=== PATIENT | female | born 1940 | race Caucasian/White ===

== ENCOUNTER 2022-12-02 16:45 | Observation (INO) | payer MEDICARE, SELFPAY ==
[2022-12-02] VITALS (22 sets, daily range): BP systolic 102–136; BP diastolic 34–66; PULSE 68–124; RESP 12–23; TEMP 36.6; O2SAT 83–98; BMI 39.5; BMI 36.3
--- NOTE | 2022-12-02 17:16 | ECG_ITS ---
[facility] Test Date: 2022-12-02 Pat Name: PILI ALVAREZ Department: Room: - Gender: Female Digital Experience Manager: : 1940 Requested By: Order Number: [id number] Reading MD: ALEXUS DAHL Measurements Intervals Reva Rate: 72 P: 30 TN: 270 QRS: 10 QRSD: 84 T: 67 QT: 384 QTc: 408 Interpretive Statements 1100 Sinus rhythm 2231 First degree AV block 2420 RSR (QR) in lead V1/V2, consistent with right ventricular conduction delay 4068 Nonspecific Twave abnormality Baseline artifact 9150 abnormal ECG No previous ECG available for comparison Electronically Signed On 12-04-2022 18:21:00 EDT by ALEXUS DAHL
--- NOTE | 2022-12-02 17:19 | ED_ITS ---
HPI - Fall General Chief Complaint: Fall Stated Complaint: FALL Time Seen by Provider: 12/02/22 17:00 History of Present Illness HPI Narrative: Patient was walking in her bathroom 2 days ago and using her walker device for support when she lost her footing and slid down, falling back and striking the floor kind of like I slid down flat . No injury to the head, neck or back. She had some bilateral hip pain and left knee pain initially but was able to ambulate after someone helped her up. Over the last 2 days she had been ambulating at home with her walker/assistance device. However this afternoon she sat on the cough and then was unable to get up and stand due to pain behind the left knee and in both hips. She had prior bilateral knee replacement surgery at an outside hospital closer to where she used to live. She relocated to [facility] to live with family member after her significant other 2 months ago. Related Data Allergies Allergy/AdvReac Type Severity Reaction Status Date / Time No Known Drug Allergies Allergy Verified 12/02/22 16:53 PFSH PFS Social History Smoking status: Former smoker Exam Narrative Exam Narrative: Nurses note and vital signs reviewed and patient is not hypoxic. afebrile General: The patient appears well and in no apparent distress. Patient is resting comfortably on cart. GCS = 15. Skin: Warm, dry, no pallor noted. Head: Normocephalic, atraumatic Neck: Supple, trachea mid-line. Full ROM and no cervical spinal tenderness. Eyes: PERRLA, EOMI ENT: no oral or intraoral injury Cardiovascular: Regular Rate and Rhythm Respiratory: Patient is in no distress, no accessory muscle use, lungs are clear to auscultation, no wheezing, rales or rhonchi Chest Wall: no tenderness, no flail chest, contusion, abrasion, or signs of trauma. Back: No thoracic or lumbar tenderness to palpation. Musculoskeletal: Pain in both hips with any attempt at hip movement. Tenderness on palpation of both greater trochanters. No right or left thigh tenderness. No LE deformity. Left popliteal tenderness, no left knee swelling and no left patellar pain with palpation. Pulses at femoral, DP, PT, and popliteal were 2+ bilaterally. Moves remaining extremities in all modalities with 5/5 strength. GI: Normal bowel sounds, no tenderness to palpation, no masses appreciated. No rebound, guarding, or rigidity noted. Neurological: A&O x4, normal equal able bodied watchman strength, normal finger to nose, normal speech, normal coordination, normal motor, normal sensory. Psychiatric: Cooperative Constitutional Vital Signs, click to edit/add: Last Vital Signs Temp 97.8 F 12/02/22 16:48 Pulse 124 H 12/02/22 16:48 Resp 22 12/02/22 16:48 BP 102/66 12/02/22 16:48 Pulse Ox 98 12/02/22 16:48 O2 Del Method Room Air 12/02/22 16:48 Course Vital Signs Vital signs: Vital Signs Temperature 97.8 F 12/02/22 16:48 Pulse Rate 124 H 12/02/22 16:48 Respiratory Rate 22 12/02/22 16:48 Blood Pressure 102/66 12/02/22 16:48 Pulse Oximetry 98 12/02/22 16:48 Oxygen Delivery Method Room Air 12/02/22 16:48 Temperature 97.8 F 12/02/22 16:48 Pulse Rate 124 H 12/02/22 16:48 Respiratory Rate 22 12/02/22 16:48 Blood Pressure 102/66 12/02/22 16:48 Pulse Oximetry 98 12/02/22 16:48 Oxygen Delivery Method Room Air 12/02/22 16:48 MDM - Fall MDM Narrative Medical decision making narrative: patient was given IV Solu-Medrol and IV Toradol and received x-rays of the left knee and both hips as well as bony pelvis. No acute fracture, dislocation or other focal acute abnormality was identified. her bilateral hip arthroplasty and bilateral knee arthroplasty hardware is intact. Despite treatment the patient is still in too much pain to properly move the left leg at the hip and knee, much less attempt to sit up, stand or walk. WBC 12k with left shift but no sign of infection noted on physical exam. BMP with normal electrolytes. Slightly elevated BUN and Cr at 22, 1.11. Nothing found to account for the patient's symptoms but since she cannot stand or ambulate she will be admitted to [facility] for PT, pain control, additional evaluation. Dr Urban Sister asked that we obtain CT scan of the pelvis/hips but agreed to accept the patient's admission. Case discussed with Dr Centeno at 7pm shift change - he will review the CT results and notify ortho - Dr Galvin - if there is a need for his services. Dr Barahona will be the hospitalist in the morning so we admitted to his service. Lab Data Attestation: I reviewed the patient's lab results. Labs: Lab Results 12/02/22 Range/Units 17:00 WBC 12.3 H (4.0-11.0) 10^3/uL RBC 4.05 L (4.20-5.40) 10^6/uL Hgb 12.0 (12.0-16.0) g/dL Hct 37.1 (36.0-48.0) % MCV 91.6 (81.0-99.0) fL MCH 29.6 (26.7-34.0) pg MCHC 32.3 (29.9-35.2) g/dL RDW 13.8 (11.0-15.0) % Plt Count 323 (150-450) 10^3/uL MPV 10.6 (9.5-13.5) fL Neut % (Auto) 78.3 H (43.0-75.0) % Lymph % (Auto) 14.1 L (20.5-60.0) % Dare % (Auto) 5.4 (1.7-12.0) % Eos % (Auto) 1.5 (0.9-7.0) % Baso % (Auto) 0.4 (0.2-2.0) % Neut # (Auto) 9.6 H (1.4-6.5) 10^3/uL Lymph # (Auto) 1.7 (1.2-3.8) 10^3/uL Dare # (Auto) 0.7 (0.3-0.8) 10^3/uL Eos # (Auto) 0.2 (0.0-0.7) 10^3/uL Baso # (Auto) 0.1 (0.0-0.1) 10^3/uL Abs Immat Gran (auto) 0.04 H (0.00-0.03) 10^3/uL Imm/Tot Granulo (auto) 0.3 (0.0-0.5) % Sodium 139 (136-145) mmol/L Potassium 3.8 (3.5-5.1) mmol/L Chloride 105 (98-107) mmol/L Carbon Dioxide 27.3 (21.0-32.0) mmol/L Anion Gap 10.5 BUN 22.0 H (7.0-18.0) mg/dL Creatinine 1.11 H (0.55-1.02) mg/dL Est GFR ( Amer) 57 L (>=60) Est GFR (Non-Af Amer) 47 L (>=60) BUN/Creatinine Ratio 19.8 Glucose 94 (74-106) mg/dL Calcium 8.9 (8.5-10.1) mg/dL Imaging Data xr hip BL: Radiologist's impression: Patient Name: PILI ALVAREZ MRN: [facility]:[id number] date: 1940 Sex: F Assigned Patient Location: ER Current Patient Location: ER Accession/Order Number: [id number] Exam Date: 12/02/2022 17:25 Report Date: 12/02/2022 17:56 At the request of: LAVERN HEDRICK Procedure: XR hip BI w PEL 1V EXAM: XR hip BI w PEL 1V HISTORY: fall, bilateral hip pain COMPARISON: None. TECHNIQUE: 5 views FINDINGS: No visualized fracture, dislocation, subluxation or osseous lesion. Patient is status post bilateral total hip replacement arthroplasty. The prostheses exhibit no gross abnormality. The pubic symphysis and sacroiliac joints are unremarkable. Spondylitic changes of the lumbar spine. IMPRESSION: No visualized acute irregularity Electronically authenticated by: TAMY GOMEZ Date: 12/02/2022 17:56 xr knee: Radiologist's impression: Patient Name: PILI ALVAREZ MRN: [facility]:[id number] date: 1940 Sex: F Assigned Patient Location: ER Current Patient Location: ER Accession/Order Number: [id number] Exam Date: 12/02/2022 17:25 Report Date: 12/02/2022 17:57 At the request of: LAVERN HEDRICK Procedure: XR knee LT 3V EXAM: XR knee LT 3V HISTORY: left knee pain, fall COMPARISON: None. TECHNIQUE: 2 views FINDINGS: Status post total knee replacement arthroplasty. No fracture, dislocation, subluxation or osseous prosthesis is unremarkable. Joint spaces appear maintained. No discrete knee effusion. IMPRESSION: No visualized acute abnormality Electronically authenticated by: TAMY GOMEZ Date: 12/02/2022 17:57 ECG Data Interpretation: EKG interpretation: Emergency Department physician interpretation. Normal sinus rhythm at 72bpm. 1st degree AVB. non-specific ST-T changes. No ST segment elevation or depression. Artifact present. Discharge Plan Discharge Chief Complaint: Fall Clinical Impression: Inability to ambulate due to multiple joints Patient Disposition: Admitted as Observation Time of Disposition Decision: 18:43 Additional Instructions: Dr Barahona's service, OBS, medsur Referrals: Physician,Non-Staff, MD [Primary Care Provider] - 1 week
[2022-12-02 17:28] LABS: Anion Gap 10.5; BUN Creatinine Ratio 19.8; Calcium 8.9 mg/dL (8.5-10.1); Carbon Dioxide 27.3 mmol/L (21.0-32.0); Chloride 105 mmol/L (98-107); Estimated GFR (African America 57 (>=60); Estimated GFR (Non-African Ame 47 (>=60); Glucose 94 mg/dL (74-106); Potassium 3.8 mmol/L (3.5-5.1); Sodium 139 mmol/L (136-145)
[2022-12-02] MEDS: METHYLPREDNISOLONE SOD SUCC PF 125 MG/2 ML VIAL IVP (17:29)
[2022-12-02] MEDS: KETOROLAC TROMETHAMINE 30 MG/ML VIAL IVP (17:29)
[2022-12-02 17:31] LABS: Basophils Absolute Auto 0.1 10^3/uL (0.0-0.1); Basophils Percent Auto 0.4 % (0.2-2.0); Eosinophils Absolute Auto 0.2 10^3/uL (0.0-0.7); Eosinophils Percent Auto 1.5 % (0.9-7.0); Hematocrit 37.1 % (36.0-48.0); Immature Granulocytes Abs Auto 0.04 10^3/uL (0.00-0.03); Immature Granulocytes Pct Auto 0.3 % (0.0-0.5); Lymphocytes Absolute Auto 1.7 10^3/uL (1.2-3.8); Lymphocytes Percent Auto 14.1 % (20.5-60.0); Mean Corpuscular HGB Conc 32.3 g/dL (29.9-35.2); Mean Corpuscular Hemoglobin 29.6 pg (26.7-34.0); Mean Corpuscular Volume 91.6 fL (81.0-99.0); Mean Platelet Volume 10.6 fL (9.5-13.5); Monocytes Absolute Auto 0.7 10^3/uL (0.3-0.8); Monocytes Percent Auto 5.4 % (1.7-12.0); Neutrophils Absolute Auto 9.6 10^3/uL (1.4-6.5); Neutrophils Percent Auto 78.3 % (43.0-75.0); Platelet Count 323 10^3/uL (150-450); Red Blood Count 4.05 10^6/uL (4.20-5.40); Red Cell Distribution Width 13.8 % (11.0-15.0); White Blood Count 12.3 10^3/uL (4.0-11.0)
--- NOTE | 2022-12-02 17:45 | XR_ITS ---
The [address] [address] Patient Name: PILI ALVAREZ MRN: [id number] date: 1940 Sex: F Assigned Patient Location: ER Current Patient Location: ER Accession/Order Number: [id number] Exam Date: 12/02/2022 17:25 Report Date: 12/02/2022 17:57 At the request of: LAVERN HEDRICK Procedure: XR knee LT 3V EXAM: XR knee LT 3V HISTORY: left knee pain, fall COMPARISON: None. TECHNIQUE: 2 views FINDINGS: Status post total knee replacement arthroplasty. No fracture, dislocation, subluxation or osseous prosthesis is unremarkable. Joint spaces appear maintained. No discrete knee effusion. XR/XR knee LT 3V IMPRESSION: No visualized acute abnormality Electronically authenticated by: TAMY GOMEZ Date: 12/02/2022 17:57
--- NOTE | 2022-12-02 17:45 | XR_ITS ---
The [address] [address] Patient Name: PILI ALVAREZ MRN: [id number] date: 1940 Sex: F Assigned Patient Location: ER Current Patient Location: ER Accession/Order Number: [id number] Exam Date: 12/02/2022 17:25 Report Date: 12/02/2022 17:56 At the request of: LAVERN HEDRICK Procedure: XR hip BI w PEL 1V EXAM: XR hip BI w PEL 1V HISTORY: fall, bilateral hip pain COMPARISON: None. TECHNIQUE: 5 views FINDINGS: No visualized fracture, dislocation, subluxation or osseous lesion. Patient is status post bilateral total hip replacement arthroplasty. The prostheses exhibit no gross abnormality. The pubic symphysis and sacroiliac joints are unremarkable. Spondylitic changes of the lumbar spine. XR/XR hip BI w PEL 1V IMPRESSION: No visualized acute irregularity Electronically authenticated by: TAMY GOMEZ Date: 12/02/2022 17:56
--- NOTE | 2022-12-02 19:08 | CT_ITS ---
The [address] [address] Patient Name: PILI ALVAREZ MRN: [facility]:[id number] date: 1940 Sex: F Assigned Patient Location: ER Current Patient Location: [facility] Accession/Order Number: [id number] Exam Date: 12/02/2022 19:22 Report Date: 12/02/2022 20:24 At the request of: LAVERN HEDRICK Procedure: CT pelvis wo con EXAMINATION: CT pelvis wo con, [id number] EXAM REASON: bilateral hip pain after fall TECHNIQUE: Helical CT images of the pelvis were obtained without contrast. Multiplanar reformats were generated at the scanner. Dose reduction technique used: Automated exposure control and/or adjustment of the mA and/or kV according to patient size and/or use of iterative reconstruction technique. COMPARISON: Correlated with same day bilateral hip x-rays. FINDINGS: Note: Compared with contrast-enhanced exams, noncontrast images are less sensitive for the detection of some types of vascular, solid organ, and soft tissue pathology. Bladder: There is air within the bladder. Reproductive organs: Within normal limits. Visualized kidneys: Left lower pole renal sinus cysts versus mild hydronephrosis. Abdominal wall: No hernia. No significant hematoma. Perineum: Within normal limits. Lymph nodes: No lymphadenopathy. Visualized vasculature: No aneurysm. Visualized bowel: Mild colonic diverticulosis without evidence of acute diverticulitis. Medium-sized rectal stool ball. Visualized peritoneal spaces: No free air or free fluid. Osseous: -No fracture, dislocation, or suspicious osseous lesion. -Visualized portions of the bilateral hip arthroplasties are intact. The most anterior of the acetabular fusion screws on the left extends beyond the inner cortex of the iliac bone and contacts the left iliac vein (series 4 image 49). CT/CT pelvis wo con IMPRESSION: 1. No acute fracture demonstrated. 2. Air within the bladder. Correlate for recent catheterization. 3. Partially visualized left lower pole renal sinus cysts versus mild hydronephrosis. Electronically authenticated by: SUZANNE BARKER Date: 12/02/2022 20:24
--- NOTE | 2022-12-02 23:25 | P.PN_ITS ---
Progress Note: Subjective Subjective Interval history: CC: Bilateral lower extremity pain HPI: This is a very pleasant 82 years old female presented to emergency room today from home. Patient is morbidly obese. Patient uses walker to ambulate. Patient stating that she almost fell few days ago slowly lowering herself to the ground. No trauma. Patient stating that since the event her ability to walk altered. Today she was not able to ambulate because of severe pain in both of her hips and left knee area. Patient is status post bilateral total hip with total knee replacement. Imaging studies in the emergency room did not reveal any acute fractures. Trauma work-up was negative. Admitted for symptoms control and PT evaluation. Exam Narrative Exam Narrative: ROS: 1.General: no fever, chills, not in distress 2.HEENT: no LUCERO, no blurry vision, no swallow problems, no nasal congestion, no sore throat 3.Pulmonary: no cough, SOB, wheezes 4.CVS: no CP, no palpitations, no SALCEDO, no SOB, no intermittent claudication 5.GI: no nausea, vomiting or diarrhea, no abdominal pain, no constipation, no hematemesis or hematochezia 6.: no renal colic, no hematuria, urinary frequency or urgency 7.Extremities: no edema 8.Neurological: no dizziness, vertigo, double or blurry vision, no no focal weakness, no paresthesia, no swallow or speech problems 9.Musculosceletal: no joint pains, no joint swelling, no back pain 10.Dermatological: no skin rashes, no lesions, no pruritus 11.Hematological: no bleeding, no hx/o clots 12.Endocrinological: no heat/cold intolerance, no hx/o diabetes 13.Psychiatric: no suicidal or homicidal thoughts Physical Exam: Not in distress, pleasant, lucid, cooperative, morbidly obese Head - atraumatic, eyes - pupils equal, round, reactive to light, extra ocular movement intact, MMM Neck - supple, thyroid not enlarged, LN not palpated Lungs - clear to auscultation, no dullness on percussion CVS - heart sounds S1, S2, no additional murmurs gallop, regular rate and rhythm Gastrointestinal?abdomen is soft, non-tender, non-distended, no organomegaly, positive bowel sounds Extremities no clubbing, cyanosis, 3+ bilateral pitting lower extremity edema Neurological?cranial nerve II?XII grossly intact, no meningeal signs, no cerebellar signs, no sensory deficit Musculoskeletal -status post bilateral THR and TKR, no effusions, ROM preserved Dermatological - the skin dry, warm, no rashes Psychiatric?patient is AAO X3, patient has normal affect Constitutional Vital Signs, click to edit/add: Last Vital Signs Temp 97.8 F 12/02/22 21:01 Pulse 88 12/02/22 21:01 Resp 22 12/02/22 21:01 BP 111/62 12/02/22 21:06 Pulse Ox 93 L 12/02/22 21:01 O2 Del Method Room Air 12/02/22 21:01 Progress Note: Objective Labs Labs: Short CBC 12/02/22 Range/Units 17:00 WBC 12.3 H (4.0-11.0) 10^3/uL Hgb 12.0 (12.0-16.0) g/dL Hct 37.1 (36.0-48.0) % Plt Count 323 (150-450) 10^3/uL BMP 12/02/22 17:00 Sodium 139 Potassium 3.8 Chloride 105 Carbon Dioxide 27.3 BUN 22.0 H Creatinine 1.11 H Glucose 94 Calcium 8.9 Progress Note: A&P Assessment and Plan (1) Inability to ambulate due to multiple joints: Assessment and Plan: Continue to optimize pain control Physical and occupational able evaluation ordered Follow-up results of the CT pelvis/hips (2) HTN (hypertension): Assessment and Plan: Resume home medications Adjust as needed (3) Diabetes: Assessment and Plan: I am going to start patient on ADA diet, Accu-Cheks, coverage with sliding scale of insulin. I am going to hold off metformin for now (4) Morbid obesity: Assessment and Plan: Defer to outpatient management Plan END: As the provider for the telehealth service, I attest that I introduced myself to the patient, provided my credentials, disclosed by location and determined that based on a review of the patient's chart and discussion with members of the patient's treatment team, telemedicine via real-time, 2 way, and interactive audio and video platform is an appropriate and effective means of providing the service. ?The patient and I mutually agree this visit is appropriate for [facility] emedicine. ?The virtual encounter was taken place from? [place], [place]. ?The encounter took approximately 35 minutes. ?The nurse was present during the entire time and I was able to move the stethoscope in appropriate directions. ?The patient was evaluated at the Hospital ? Portions of this note may be dictated using Vida[employer] voice recognition software. Variances in spelling and vocabulary are possible and unintentional. Not all errors may be caught and/or corrected. Please notify the author if any discrepancies are noted and/or if the meaning of any statement is unclear.? ? Patient verbally consented for treatment via video visit with patient currently located at the [facility] and provider located in [place]. Telemedicine Attestation Telemedicine Attestation I conducted this encounter from [[place]] via secure live, [id number] video conference with the patient, located at [facility] with [intractable leg pain]. Prior to the interview, the risks and benefits of telemedicine were discussed with the patient and verbal consent was obtained.
[2022-12-02 23:40] LABS: Glucometer 133 mg/dL (74-106)
[2022-12-03] MEDS: OXYCODONE HCL/ACETAMINOPHEN 5MG/325MG 1 TAB PO (03:36)
[2022-12-03] MEDS: ACETAMINOPHEN 325 MG TABLET 650 MG PO (05:51)
[2022-12-03] MEDS: FUROSEMIDE 20 MG TABLET PO (05:52)
[2022-12-03 06:23] VITALS: BP 124/80; PULSE 90; RESP 20; TEMP 37.2; O2SAT 95
[2022-12-03 06:46] LABS: Alanine Aminotransferase 25 U/L (14-59); Albumin Globulin Ratio 0.7; Albumin Level 2.4 g/dL (3.4-5.0); Alkaline Phosphatase 74 U/L (46-116); Anion Gap 9.1; Aspartate Amino Transferase 15 U/L (15-37); BUN Creatinine Ratio 22.1; Bilirubin Total 0.5 mg/dL (0.2-1.0); Calcium 8.5 mg/dL (8.5-10.1); Carbon Dioxide 27.8 mmol/L (21.0-32.0); Chloride 107 mmol/L (98-107); Estimated GFR (African America 56 (>=60); Estimated GFR (Non-African Ame 46 (>=60); Globulin 3.5 g/dL; Glucose 152 mg/dL (74-106); Potassium 3.9 mmol/L (3.5-5.1); Sodium 140 mmol/L (136-145); Total Protein 5.9 g/dL (6.4-8.2)
[2022-12-03] MEDS: CARVEDILOL 6.25 MG TABLET PO ×2 (09:50→21:16)
[2022-12-03] MEDS: HYDROCHLOROTHIAZIDE 25 MG TABLET 12.5 MG PO (09:50)
[2022-12-03] MEDS: LISINOPRIL 5 MG TABLET PO (09:50)
[2022-12-03] MEDS: KETOROLAC TROMETHAMINE 10 MG TABLET PO (09:50)
[2022-12-03] MEDS: OMEPRAZOLE 20 MG CAPSULE.DR PO ×2 (09:50→21:16)
[2022-12-03] MEDS: ASPIRIN 81 MG TAB.CHEW PO (09:51)
[2022-12-03] MEDS: ATORVASTATIN CALCIUM 40 MG TABLET PO (09:51)
[2022-12-03 09:54] VITALS: BP 112/65
[2022-12-03 11:08] LABS: Glucometer 170 mg/dL (74-106)
[2022-12-03] MEDS: INSULIN ASPART 300 UNIT/3 ML PEN SUBQ (12:31)
[2022-12-03 14:00] VITALS: BP 98/54; PULSE 77; RESP 18; TEMP 36.7; O2SAT 93
--- NOTE | 2022-12-03 14:54 | P.HP_ITS ---
H&P: HPI History of Present Illness Chief complaint: Fall, inability to ambulate Narrative: 82 y/o female to ER after a fall. Fell 2 days prior when walker slipped on floor. Slid down and landed on floor. C/o pain in left knee and bilateral hips. Next day mild pain but day admission severe pain. Not able to get up or walk and to ER. X-ray hips and pelvis showed prior bilateral hip replacement but no acute change. X-ray knee showed replacement and no acute change. Given toradol and solu-medrol but still not able to walk and admitted. Feels better this am. Still pain but tolerable. Seen by PT and very difficult to get up or transfer. Review of Systems ROS Constitutional Denies: fever, chills or night sweats Cardiovascular Denies: chest pain, palpitations or edema Respiratory Denies: shortness of breath, cough or wheezing Gastrointestinal Denies: abdominal pain, nausea or vomiting Genitourinary Denies: painful urination [facility] Medical History (Updated 12/03/22 @ 10:28 by Johnathon Barahona MD) Bleeding ulcer ?K28.4 - Chronic or unspecified gastrojejunal ulcer with hemorrhage (ICD-10) Blood transfusion during current hospitalisation Diabetes ?E11.9 - Type 2 diabetes mellitus without complications (ICD-10) FH: bilateral hip replacements ?Z82.69 - Family history of other diseases of the musculoskeletal system and connective tissue (ICD-10) Morbid obesity ?E66.01 - Morbid (severe) obesity due to excess calories (ICD-10) Surgical History (Updated 12/02/22 @ 21:36 by Federica Case) H/O knee surgery ?Z98.890 - Other specified postprocedural states (ICD-10) Family History (Updated 12/02/22 @ 21:37 by Federica Case) Mother Family history of CHF (congestive heart failure) Brother Family history of cancer Sister Family history of cancer Social History (Updated 12/02/22 @ 21:40 by Federica Case) Within the past year, how often did you have a drink containing alcohol: monthly or less Within the past year, how many standard drinks containing alcohol did you have on a typical day: 1 or 2 Within the past year, how often did you have six or more drinks on one occasion: less than monthly Total score: 1 Score interpretation: A score less than 3 is consistent with normal alcohol consumption. Smoking status: Former smoker Second hand tobacco smoke exposure: No Non-prescribed substance use: denies use Previous occupational history: livestock farm manager for [employer] Known occupational exposures/hazards: No Highest level of school completed/degree received: 12th grade, no diploma Do you want help with school or training: No Are you now , , , , never or living with a partner: In a typical week, how many times do you talk on the telephone with family, friends, or neighbors: 3 or more times per week How often do you get together with friends or relatives: 3 or more times per week How often do you attend gnosticist or latter day services: 1-3 times per year Do you belong to any clubs or organizations such as gnosticist groups unions, [employer] or athletic groups, or school groups: yes Total score: 2 Score interpretation: A score of greater than or equal to 2 indicates the lowest level of social isolation. Little interest or pleasure in doing things: not at all Feeling down, depressed, or hopeless: not at all Feel stressed/tense/nervous/anxious/difficulty sleeping: to some extent Life stressors: other Life stressor details: just Due to disability, difficulty making decisions: No Do you think of yourself as: straight/heterosexual Gender Identity: female Meds Home Medications and Allergies Home Medications Medication Instructions Recorded Confirmed Type aspirin 81 mg capsule 81 mg PO DAILY 12/02/22 12/02/22 History atorvastatin 40 mg tablet 40 mg PO DAILY 12/02/22 12/02/22 History carvedilol 6.25 mg tablet 6.25 mg PO BID 12/02/22 12/02/22 History furosemide 20 mg tablet (Lasix) 20 mg PO DAILY PRN edema 12/02/22 12/02/22 Hist ory hydrochlorothiazide 12.5 mg tablet 12.5 mg PO DAILY 12/02/22 12/02/22 History ketorolac 10 mg tablet 10 mg PO Q6H PRN pain 12/02/22 12/02/22 History lisinopril 5 mg tablet 5 mg PO DAILY 12/02/22 12/02/22 History metformin 500 mg tablet 500 mg PO DAILY 12/02/22 12/02/22 History omeprazole 20 mg capsule,delayed 20 mg PO BID 12/02/22 12/02/22 History release Allergies Allergy/AdvReac Type Severity Reaction Status Date / Time No Known Drug Allergies Allergy Verified 12/02/22 16:53 Exam Constitutional Vital Signs, click to edit/add: Last Vital Signs Temp 98.0 F 12/03/22 14:00 Pulse 77 12/03/22 14:00 Resp 18 12/03/22 14:00 BP 98/54 12/03/22 14:00 Pulse Ox 93 L 12/03/22 14:00 O2 Del Method Room Air 12/03/22 14:00 Documenting provider has reviewed patient's vital signs: yes Common normals: no apparent distress, oriented x3 and alert HENMT Common normals: normocephalic Eye Common normals: PERRL and EOMs intact bilaterally Respiratory Common normals: normal respiratory effort and clear to auscultation bilaterally Cardio Common normals: regular rate, regular rhythm, no gallops, no murmurs and no rub GI Common normals: Normal to inspection, nondistended, normoactive bowel sounds present and non-tender Extremity Common normals: no pedal edema Results Labs Labs: Short CBC 12/02/22 Range/Units 17:00 WBC 12.3 H (4.0-11.0) 10^3/uL Hgb 12.0 (12.0-16.0) g/dL Hct 37.1 (36.0-48.0) % Plt Count 323 (150-450) 10^3/uL BMP 12/02/22 12/02/22 05:02 17:00 Sodium 140 139 Potassium 3.9 3.8 Chloride 107 105 Carbon Dioxide 27.8 27.3 BUN 25.0 H 22.0 H Creatinine 1.13 H 1.11 H Glucose 152 H 94 Calcium 8.5 8.9 Liver Function 12/02/22 12/02/22 Range/Units 05:02 05:02 Total Bilirubin 0.5 (0.2-1.0) mg/dL AST 15 (15-37) U/L ALT 25 (14-59) U/L Alkaline Phosphatase 74 (46-116) U/L Albumin 2.4 L 2.4 L (3.4-5.0) g/dL Assessment and Plan Assessment and Plan (1) Inability to ambulate due to multiple joints: (2) HTN (hypertension): (3) Bilateral primary osteoarthritis of hip: (4) Primary osteoarthritis of left knee: (5) Type 2 diabetes mellitus with hyperglycemia: (6) Stage 3a chronic kidney disease: (7) Obesity (BMI 30-39.9): Plan Continue toradol for pain and add ultram PRN. Continue PT/OT. Resume home medication. If continue to improve likely home in am.
[2022-12-03] MEDS: TRAMADOL HCL 50 MG TABLET PO (16:08)
[2022-12-03 17:20] LABS: Glucometer 103 mg/dL (74-106)
[2022-12-03 19:00] VITALS: BP 102/52; PULSE 73; RESP 16; TEMP 36.6; O2SAT 93
[2022-12-03 19:32] LABS: Glucometer 104 mg/dL (74-106)
[2022-12-04 04:39] VITALS: BP 110/55; PULSE 61; RESP 16; TEMP 36.6; O2SAT 94
[2022-12-04 08:30] LABS: Glucometer 143 mg/dL (74-106)
[2022-12-04 09:03] VITALS: BP 95/51; PULSE 69
[2022-12-04 09:04] VITALS: BP 95/61
[2022-12-04] MEDS: ATORVASTATIN CALCIUM 40 MG TABLET PO (09:11)
[2022-12-04] MEDS: TRAMADOL HCL 50 MG TABLET PO (09:11)
[2022-12-04] MEDS: OMEPRAZOLE 20 MG CAPSULE.DR PO ×2 (09:11→22:09)
[2022-12-04] MEDS: ASPIRIN 81 MG TAB.CHEW PO (09:11)
[2022-12-04] MEDS: METHYLPREDNISOLONE SOD SUCC PF 125 MG/2 ML VIAL 60 MG IVP ×2 (13:38→22:09)
--- NOTE | 2022-12-04 14:24 | PM.PN ---
Progress Note: Subjective Subjective Interval history: Patient slow to improve. Continues to have pain and stiffness in shoulder, hips, and knees. Very difficult to transfer or ambulate. Afebrile. Normal appetite and no emesis or diarrhea. No SOB or cough. No chest pain or palpitations. Ultram is helping with pain. Exam Constitutional Vital Signs, click to edit/add: Last Vital Signs Temp 97.8 F 12/04/22 04:39 Pulse 69 12/04/22 09:03 Resp 16 12/04/22 04:39 BP 95/61 12/04/22 09:04 Pulse Ox 94 L 12/04/22 04:39 O2 Del Method Room Air 12/04/22 04:39 Documenting provider has reviewed patient's vital signs: yes Common normals: no apparent distress, oriented x3 and alert HENMT Common normals: normocephalic Eye Common normals: PERRL and EOMs intact bilaterally Respiratory Common normals: normal respiratory effort and clear to auscultation bilaterally Cardio Common normals: regular rate, regular rhythm, no gallops, no murmurs and no rub GI Common normals: Normal to inspection, nondistended, normoactive bowel sounds present and non-tender Extremity Common normals: no pedal edema Progress Note: A&P Assessment and Plan (1) Bilateral primary osteoarthritis of hip: (2) Primary osteoarthritis of left knee: (3) 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 Start solu-medrol and use ultram PRN. Continue PT. Discussed options including SNF but advised patient would have to pay out of pocket. Other options include home health. Will have long term care social worker discuss options in am but should be ready for discharge tomorrow.
[2022-12-04 14:54] VITALS: BP 117/54; PULSE 68; RESP 18; TEMP 36.7; O2SAT 93
[2022-12-04 19:44] VITALS: BP 109/69; PULSE 72; RESP 18; TEMP 36.8; O2SAT 90
[2022-12-04 20:00] VITALS: RESP 18
[2022-12-04 20:45] LABS: Glucometer 157 mg/dL (74-106)
[2022-12-04] MEDS: CARVEDILOL 6.25 MG TABLET PO (22:09)
[2022-12-05 04:30] LABS: Hematocrit 33.9 % (36.0-48.0); Immature Granulocytes Abs Auto 0.04 10^3/uL (0.00-0.03); Immature Granulocytes Pct Auto 0.4 % (0.0-0.5); Lymphocytes Absolute Auto 0.6 10^3/uL (1.2-3.8); Lymphocytes Percent Auto 6.1 % (20.5-60.0); Mean Corpuscular HGB Conc 32.4 g/dL (29.9-35.2); Mean Corpuscular Volume 92.4 fL (81.0-99.0); Mean Platelet Volume 9.9 fL (9.5-13.5); Monocytes Absolute Auto 0.1 10^3/uL (0.3-0.8); Neutrophils Absolute Auto 8.5 10^3/uL (1.4-6.5); Neutrophils Percent Auto 92.5 % (43.0-75.0); Platelet Count 275 10^3/uL (150-450); Red Blood Count 3.67 10^6/uL (4.20-5.40); Red Cell Distribution Width 13.5 % (11.0-15.0); White Blood Count 9.2 10^3/uL (4.0-11.0)
[2022-12-05 04:36] LABS: Anion Gap 6.3; BUN Creatinine Ratio 21.8; Calcium 8.5 mg/dL (8.5-10.1); Chloride 106 mmol/L (98-107); Estimated GFR (African America >60 (>=60); Estimated GFR (Non-African Ame 53 (>=60); Glucose 160 mg/dL (74-106); Potassium 4.3 mmol/L (3.5-5.1); Sodium 138 mmol/L (136-145)
[2022-12-05 06:20] VITALS: BP 121/68; PULSE 72; RESP 18; TEMP 36.5; O2SAT 93
--- NOTE | 2022-12-05 07:18 | PC.NURSE ---
Assisted to [facility], has difficulty moving left leg when getting oob. voids 300 cc yellow urine with small bm. Ambulated with walker around bed to chair, tolerated well. gait slow but steady.
[2022-12-05 07:49] LABS: Glucometer 143 mg/dL (74-106)
[2022-12-05 08:00] VITALS: BP 108/73; PULSE 63; RESP 18; TEMP 36.1
--- NOTE | 2022-12-05 08:32 | CM.NOTE ---
Medicare Outpatient Observation Notice discussed with pt, pt verbalizes understanding and signs paper. Original given to pt and copy placed on pt's chart.
[2022-12-05] MEDS: HYDROCHLOROTHIAZIDE 25 MG TABLET 12.5 MG PO (08:53)
[2022-12-05] MEDS: OMEPRAZOLE 20 MG CAPSULE.DR PO (08:53)
[2022-12-05] MEDS: LISINOPRIL 5 MG TABLET PO (08:53)
[2022-12-05] MEDS: METHYLPREDNISOLONE SOD SUCC PF 125 MG/2 ML VIAL 60 MG IVP (08:55)
[2022-12-05] MEDS: ATORVASTATIN CALCIUM 40 MG TABLET PO (08:55)
[2022-12-05] MEDS: CARVEDILOL 6.25 MG TABLET PO (08:55)
[2022-12-05] MEDS: ASPIRIN 81 MG TAB.CHEW PO (08:55)
--- NOTE | 2022-12-05 10:43 | CM.NOTE ---
Rounds made with brandon Barkley for discharge today. Discussed skilled therapy vs HH and skilled therapy at this time would be an out of pocket expense for pt. Pt has concern to return home alone d/t unable to bend or stand on L leg. Pt inquires about out of pocket cost for [facility] or [facility], message sent to Luciano (health services rn), she will get costs for pt. Pt does have one story home but voices concerns of her increased weakness and arthritic pain.
--- NOTE | 2022-12-05 11:51 | SWNOTE1 ---
KASEY met with pt to discuss dc needs. Pt does live at home by herself. She moved here 2 months ago after her significant other . She has 2 brothers in this area and a sister in law who assists as well. Pt has a walker that she uses at home. Pt is in observation status and she would need to pay out of pocket to go to nursing facility for rehab. SW, doctor, and case management has explained this to pt. Pt also has option of going home with HH as well. Pt is going to be discharged today. KASEY spoke with pt about the out of pocket and did get some costs from [facility], per pt's request. Pt would like SW to call her sister in law. KASEY spoke with pt, pt's sister in law via speaker phone. Pt's sister in law did voice her frustrations with KASEY and why medicare does not cover. KASEY did explain this to pt's sister in law in regards to pt being in observation and not meeting inpt criteria. KASEY went over costs with pt's sister in law, Naty. They would like to know if there is a minimum day stay at either and if meds add an additional cost, SW to find out.
--- NOTE | 2022-12-05 12:25 | SWNOTE1 ---
KASEY spoke with [facility] and [facility] and both have minimum of 7 day stay and once they get to day 15 the rates will increase. For both facilities it is called the rehab to home program. KASEY spoke with pt and sister in law via speaker phone and they both do not feel it is safe for pt to go home and they want [facility]. KASEY to send referral.
[2022-12-05 12:29] LABS: Glucometer 116 mg/dL (74-106)
--- NOTE | 2022-12-05 13:05 | PM.DS1 ---
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 82 y/o female to ER after a fall. Fell 2 days prior when walker slipped on floor. Slid down and landed on floor. C/o pain in left knee and bilateral hips. Next day mild pain but day admission severe pain. Not able to get up or walk and to ER. X-ray hips and pelvis showed prior bilateral hip replacement but no acute change. X-ray knee showed replacement and no acute change. Given toradol and solu-medrol but still not able to walk and admitted. Hospital course: Slow to improve. Continued to have pain in hips and knees. Given toradol and started ultram. Seen by PT and very difficult to get up or transfer. Pain improved with medication. Added solu-medrol. Patient very unsteady with movement and hard to transfer. PT recommended SNF. Patient in Observation bed and does not have qualifying inpatient diagnosis. Discussed that insurance would not pay for SNF and would have to self pay. director of child welfare services discussed with patient and family. Family not comfortable with patient going home. Decided to self pay to go to SNF for short term and rehab. Patient discharged in stable condition. Will take prednisone taper for inflammation. Use ultram PRN for pain. Time Spent with Patient Time attestation: Total time spent providing and/or coordinating discharge services: Exam Constitutional Vital Signs, click to edit/add: Last Vital Signs Temp 97.0 F L 12/05/22 08:00 Pulse 63 12/05/22 08:00 Resp 18 12/05/22 08:00 BP 108/73 12/05/22 08:00 Pulse Ox 93 L 12/05/22 06:20 O2 Del Method Room Air 12/05/22 08:00 Documenting provider has reviewed patient's vital signs: yes Common normals: no apparent distress, oriented x3 and alert HENMT Common normals: normocephalic Eye Common normals: PERRL and EOMs intact bilaterally Cardio Common normals: regular rate, regular rhythm, no gallops, no murmurs and no rub GI Common normals: Normal to inspection, nondistended, normoactive bowel sounds present and non-tender Extremity Common normals: no pedal edema DS: Data Data Completed and Pending Labs on day of discharge: Labs from last 24 hours 12/05/22 12/05/22 12/05/22 12:27 07:47 04:01 WBC 9.2 RBC 3.67 L Hgb 11.0 L Hct 33.9 L MCV 92.4 MCH 30.0 MCHC 32.4 RDW 13.5 Plt Count 275 MPV 9.9 Neut % (Auto) 92.5 H Lymph % (Auto) 6.1 L [place] % (Auto) 1.0 L Eos % (Auto) 0.0 L Baso % (Auto) 0.0 L Neut # (Auto) 8.5 H Lymph # (Auto) 0.6 L [place] # (Auto) 0.1 L Eos # (Auto) 0.0 Baso # (Auto) 0.0 Abs Immat Gran (auto) 0.04 H Imm/Tot Granulo (auto) 0.4 Sodium 138 Potassium 4.3 Chloride 106 Carbon Dioxide 30.0 Anion Gap 6.3 BUN 22.0 H Creatinine 1.01 Est GFR ( Amer) >60 Est GFR (Non-Af Amer) 53 L BUN/Creatinine Ratio 21.8 Glucose 160 H Calcium 8.5 POC Glucose 116 H 143 H 12/04/22 20:41 WBC RBC Hgb Hct MCV MCH MCHC RDW Plt Count MPV Neut % (Auto) Lymph % (Auto) [place] % (Auto) Eos % (Auto) Baso % (Auto) Neut # (Auto) Lymph # (Auto) [place] # (Auto) Eos # (Auto) Baso # (Auto) Abs Immat Gran (auto) Imm/Tot Granulo (auto) Sodium Potassium Chloride Carbon Dioxide Anion Gap BUN Creatinine Est GFR ( Amer) Est GFR (Non-Af Amer) BUN/Creatinine Ratio Glucose Calcium POC Glucose 157 H Discharge Plan Discharge Disposition: Home Health Service Discharge Medications: New tramadol 50 mg Tablet 50 mg PO Q6H PRN (Reason: Pain) 5 Days Qty: 20 0RF prednisone 10 mg tablets,dose pack 10 mg PO DAILY Qty: 39 0RF Rx Instructions: 6 PO daily x 3 days, then 4 PO daily x 3 days, then 2 PO daily x 3 days, then 1 PO daily x 3 days Continued furosemide [Lasix] 20 mg tablet 20 mg PO DAILY PRN (Reason: edema) aspirin 81 mg capsule 81 mg PO DAILY atorvastatin 40 mg tablet 40 mg PO DAILY carvedilol 6.25 mg tablet 6.25 mg PO BID Rx Instructions: must administer with a meal/food hydrochlorothiazide 12.5 mg tablet 12.5 mg PO DAILY ketorolac 10 mg tablet 10 mg PO Q6H PRN (Reason: pain) lisinopril 5 mg tablet 5 mg PO DAILY metformin 500 mg tablet 500 mg PO DAILY omeprazole 20 mg capsule,delayed release(DR/EC) 20 mg PO BID omega 4-myh-qho-fish oil [Fish Oil] 1,000 mg (120 mg-180 mg) capsule 2 cap PO DAILY Daily Multivitamin with Iron 18-400 mg-mcg tablet 1 tab PO DAILY Activity: resume usual activities as tolerated Diet: advance to your usual diet Certified Alcohol Drug Counselor/Drum Dyeing Machine Operator Instructions: Discharge to [facility], paying out of pocket for rehab Forms: Portal Instructions
--- NOTE | 2022-12-05 13:27 | SWNOTE1 ---
[facility] is ready for pt at anytime. KASEY gave pt and sister in law pricing for the 7 day minimum stay, and they are aware pt will need that upfront. KASEY did set up trips for 2:30-3:00. KASEY let nursing, family, and pt's sister in law know time. Pt is going to [facility], but she is paying out of pocket for rehab.
--- NOTE | 2022-12-05 13:49 | SWNOTE1 ---
KASEY spoke with pt's brother (Naty's ) and SW notified him that pt has 2 prescriptions that will need filled and SW placed them in her red, white, and blue bag. SW also notified him of discharge time and the cost of $1,953.00 that will need paid today. He will be bringing in check and other stuff for pt after Naty gets off work. KASEY also notified Saba at [facility] that pt has scripts in her bag that family will fill.
[2022-12-05 14:00] VITALS: BP 106/68; PULSE 81; RESP 18; TEMP 36.9; O2SAT 95
--- NOTE | 2022-12-06 14:59 | CM.DCFOLLOWU ---
Patient was discharged to [facility] for SNF for rehab, paying out of pocket for rehab.
== END 2022-12-05 14:35 ==
LOC: ER 19:31 → MS 20:51
PROVIDERS: Emergency Medicine; Admitting Provider Internal Medicine; Emergency Provider Student in an Organized Health Care Education/Training Program; PCP Internal Medicine; Visit Provider Family Medicine
DX: M16.0 Bilateral primary osteoarthritis of hip (principal); M17.12 Unilateral primary osteoarthritis, left knee; R26.2 Difficulty in walking, not elsewhere classified; E11.22 Type 2 diabetes mellitus with diabetic chronic kidney disease; E11.65 Type 2 diabetes mellitus with hyperglycemia; I12.9 Hypertensive chronic kidney disease with stage 1 through stage 4 chronic kidney disease, or unspecified chronic kidney disease; N18.31 Chronic kidney disease, stage 3a; E66.01 Morbid (severe) obesity due to excess calories; Z96.653 Presence of artificial knee joint, bilateral; Z87.891 Personal history of nicotine dependence; Z96.643 Presence of artificial hip joint, bilateral; Z91.81 History of falling; Z79.82 Long term (current) use of aspirin; Z79.84 Long term (current) use of oral hypoglycemic drugs; Z79.899 Other long term (current) drug therapy; Z68.36 Body mass index [BMI] 36.0-36.9, adult
CPT/HCPCS: 36415; 36416; 72192; 73523; 73562; 80048; 80053; 82042; 82948; 85025; 93005; 96374; 96375; 96376; 97161; 99285; G0378; J2930; Q3014